=== PATIENT | male | born 1960 | race Caucasian/White ===

== ENCOUNTER → 2018-02-14 | Outpatient (CLI) | payer OTHER ==
--- NOTE | 2018-02-14 09:22 | EKG ---
FACILITY: [facility] PATIENT NAME: ALTA GONZALEZ : [id number] MR: [id number] V: [id number] EXAM DATE: ORDERING PHYSICIAN: GINA OLIVARES TECHNOLOGIST: STARLA Hammond Reason : PREOP-KNEE Blood Pressure : / mmHG Vent. Rate : 060 BPM Atrial Rate : 060 BPM P-R Int : 178 ms QRS Dur : 094 ms QT Int : 444 ms P-R-T Axes : 057 067 064 degrees QTc Int : 444 ms Sinus rhythm with occasional and consecutive premature ventricular complexes Voltage criteria for left ventricular hypertrophy Peaked T waves in ant/lat leads No previous ECGs available Confirmed by OLINDA MAYEN ([id number]) on 02/14/2018 4:11:12 PM Referred By: ELISE Confirmed By:OLINDA MAYEN
[2018-02-14 09:23] LABS: PLATELET COUNT, AUTOMATED 275 K/uL (150-450)
== END ==
LOC: LAB 08:34
PROVIDERS: ATTEND Anesthesiology
DX: Z01.812 Encounter for preprocedural laboratory examination (principal); Z01.810 Encounter for preprocedural cardiovascular examination; M25.561 Pain in right knee
CPT/HCPCS: 36415; 81001; 82040; 82247; 82310; 82374; 82435; 82565; 82947; 84075; 84132; 84155; 84295; 84450; 84460; 84520; 85025; 93005

== ENCOUNTER 2018-03-24 00:54 | Inpatient (IN) | payer OTHER, BC ==
[2018-03-23 14:54] LABS: INR 0.94
[~2018-03-24] VITALS: Ht 170.2 cm; Wt 79.8 kg
[2018-03-24] VITALS (16 sets, daily range): BP systolic 142–195; BP diastolic 84–135
[~2018-03-24 00:54] MED LIST: ATOR20TA22 PO; LISI-374 PO; MELA1LIQ PO; MULT1TAB64 PO
[2018-03-24] MEDS ORDERED: MIDAZOLAM 2 MG/2 ML VIAL IVP PRN (09:10)
[2018-03-24] MEDS ORDERED: LIDOCAINE/SOD BICARB 8.4% SYR ID ONE (09:10)
[2018-03-24] MEDS ORDERED: cloNIDine EPIDUR INJ 100MCG/ML 40 MCG, ROPIVACAINE 0.5% 20 ML VIAL 25 ML, EPINEPHrine H... INJ ONE (09:10)
[2018-03-24] MEDS ORDERED: ACETAMINOPHEN 500 MG TAB PO ONE (09:10)
[2018-03-24] MEDS ORDERED: PREGABALIN 150 MG CAPSULE PO ONE (09:10)
[2018-03-24] MEDS ORDERED: CELECOXIB 200 MG CAP PO ONE (09:10)
[2018-03-24] MEDS ORDERED: NORMOSOL R SOLN(*) 1000 ML BAG 1,000 ML IV PRN (09:10)
[2018-03-24] MEDS ORDERED: FAMOTIDINE 20 MG TAB PO ONE (09:10)
[2018-03-24] MEDS ORDERED: TRANEXAMIC AC 1000 MG/10ML SDV 1,000 MG in DEXTROSE 5% 50 ML BAG 50 ML IV ONE (09:10)
[2018-03-24] MEDS: VANCOMYCIN(*) 1 GM VIAL 1.25 GM in NS(*) 0.9% 250 ML BAG 250 ML IVPB ONE ×2 (11:07→11:46)
[2018-03-24] MEDS ORDERED: fentaNYL CITR 250 MCG/5 ML AMP ONE (12:01)
[2018-03-24] MEDS ORDERED: PROPOFOL EMUL(*) 10MG/ML 20 ML 20 ML ONE (12:02)
[2018-03-24] MEDS ORDERED: LIDOCAINE 2% IV 100 MG/5ML SYR ONE (12:02)
[2018-03-24] MEDS ORDERED: ROPIVACAINE 0.5% 20 ML VIAL ONE (12:05)
[2018-03-24] MEDS ORDERED: ROPIVACAINE 0.2% 20 ML VIAL ONE (12:05)
[2018-03-24] MEDS ORDERED: DEXAMETHASONE SOD PHOS 10MG/ML ONE (12:08)
[2018-03-24] MEDS ORDERED: LIDOCAINE MPF 1% 5 ML VIAL ONE ×2 (12:43→12:44)
[2018-03-24] MEDS ORDERED: DEXAMETHASONE SOD 4 MG/ML VIAL ONE ×2 (13:14→14:31)
[2018-03-24] MEDS ORDERED: ONDANSETRON 4 MG/2 ML VIAL ONE (13:15)
[2018-03-24] MEDS ORDERED: KETAMINE HCL 200 MG/20 ML MDV ONE (13:56)
[2018-03-24] MEDS ORDERED: fentaNYL CITR 100 MCG/2 ML AMP ONE ×3 (14:01→14:47)
[2018-03-24] MEDS ORDERED: hydrALAZINE HCL 20 MG/ML VIAL ONE (14:35)
[2018-03-24] MEDS ORDERED: LABETALOL HCL 100 MG/20ML VIAL ONE ×3 (14:51→17:18)
[2018-03-24] MEDS ORDERED: OXYC5CAP21 PO (15:30)
[2018-03-24] MEDS ORDERED: PROMETHAZINE 25 MG/ML 1 ML AMP ONE (15:37)
--- NOTE | 2018-03-24 15:52 | EKG ---
FACILITY: [facility] PATIENT NAME: ALTA GONZALEZ : [id number] MR: [id number] V: [id number] EXAM DATE: ORDERING PHYSICIAN: LALITHA RAMIREZ TECHNOLOGIST: KIRA Hammond Reason : Blood Pressure : / mmHG Vent. Rate : 107 BPM Atrial Rate : 107 BPM P-R Int : 184 ms QRS Dur : 086 ms QT Int : 372 ms P-R-T Axes : 047 -08 034 degrees QTc Int : 496 ms Sinus tachycardia with frequent premature ventricular complexes in a pattern of bigeminy Left ventricular hypertrophy Nonspecific ST abnormality Abnormal ECG When compared with ECG of 14-FEB-2018 09:11, Vent. rate has increased BY 47 BPM Questionable change in QRS axis ST now depressed in Lateral leads Nonspecific T wave abnormality now evident in Inferior leads Nonspecific T wave abnormality now evident in Lateral leads Confirmed by GINA BENNETT ([id number]) on 03/24/2018 6:03:30 PM Referred By: BROOKS Confirmed By:GINA BENNETT
--- NOTE | 2018-03-24 16:39 | RADIOLOGY IMAGING REPORT ---
FACILITY: [facility] [place] PATIENT NAME: Arturo Griffin : 1960 MR: [id number] V: [id number] EXAM DATE: ORDERING PHYSICIAN: JULIUS GUY TECHNOLOGIST: Location: [facility] [place] Patient: Arturo Griffin : 1960 Visit/Account:[id number] Date of Sevice: 03/24/2018 KNEE LIMITED RIGHT Indication: Postop Comparison: None available Findings: There are postoperative changes from unicompartmental medial arthroplasty. Components are well seated . Alignment is neutral. IMPRESSION: 1. Unremarkable postoperative appearance of medial unicompartmental arthroplasty Report Dictated By: Gerardo Arellano at 03/24/2018 4:35 PM Report E-Signed By: Gerardo Arellano at 03/24/2018 4:36 PM WSN:[id number]
[2018-03-24] MEDS ORDERED: oxyCODONE HCL 5 MG CAP PO PRN (18:05)
--- NOTE | 2018-03-24 18:54 | Hospitalist Consultation ---
History of Present Illness Requesting Physician Dr. Guy Reason for Consult Ventricular bigeminy History of Present Illness This patient was admitted for knee surgery earlier today. He developed tachycardia, fever, and ventricular bigeminy during recovery. He received local nerve blocks with ropivacaine for anesthesia. He doesn't complain of any subjective symptoms. He does report a similar episode after receiving a steroid injection several months ago. At that time he reported cold sweats and feeling lightheaded. History Problems: (1) Essential hypertension Home Meds Reported Medications Oxycodone Hcl (OXYCODONE HCL) 5 Mg Capsule, 5 MG PO Q4H Y for PAIN, #40 CAPSULE 03/24/18 Melatonin (MELATONIN) 1 Mg/1 Ml Liquid, PO DAILY 03/17/18 Multivitamin (MULTI VITAMIN DAILY) 1 Each Tablet, 1 EACH PO DAILY 03/17/18 Atorvastatin Calcium (LIPITOR) 20 Mg Tablet, 1 TAB PO QDAY, TAB 03/17/18 Lisinopril (LISINOPRIL) 40 Mg Tablet, 40 MG PO QDAY, TAB 03/16/18 Allergies: Coded Allergies: No Known Drug Allergies (Unverified , 03/16/18) Hx Smoking: Yes (1/2PPD) Smoking Status: Current: Every Day Smoker Caffeine Intake: Coffee, Soda Caffeine/Cups Per Day: 1-2 a couple times a week, 2 sode a day Hx Alcohol Use: Yes Alcohol Used: Beer Hx Substance Use Disorder: No History of IV Drug Use: No Review of Systems All Systems Reviewed/Normal: Yes Exam Vital Signs Vital Signs Date Time Temp Pulse Resp B/P (MAP) Pulse Ox O2 Delivery O2 Flow Rate FiO2 03/24/18 18:21 90 Nasal Cannula 3.0 03/24/18 18:18 78 03/24/18 17:34 99.3 24 167/87 (113) Neuro: No Gross deficits Eyes: PERRLA Cardiovascular: Regular Rate and Rhythm, No JVD Respiratory: Clear to Auscultation GI: Abd Soft and Non-Tender Extremities: No Edema Integumentary: No Cyanosis Medical Decision Making Data Points Item Value Date Time Troponin I 0.042 ng/ml 03/24/18 1615 Assessment and Plan Problems: (1) Ventricular bigeminy Assessment & Plan: He did develop ventricular bigeminy and a fever post operatively. It is unclear if this could be secondary to medications. However , he did experience some similar symptoms after receiving his cortisone injection a few months ago. We will need to determine if any anesthetic agents were also administered at that time. We have placed him on telemetry and ordered a troponin series. Copies to: JULIUS GUY MD Venous Thromboembolism Antithrombotics Is Pt On Any Antithrombotics?: No GINA BENNETT DO Mar 24, 2018 18:54
[2018-03-24] MEDS: IBUPROFEN 600 MG TAB PO PRN (22:24)
[2018-03-24] MEDS: LISINOPRIL 20 MG TAB PO SCH (22:24)
[2018-03-25] VITALS: BP 181/82
[2018-03-25] MEDS: oxyCODONE HCL 5 MG CAP PO PRN ×2 (00:51→16:16)
[2018-03-25 04:00] VITALS: BP 161/63
[2018-03-25 05:37] LABS: PLATELET COUNT, AUTOMATED 204 K/uL (150-450)
[2018-03-25] MEDS: IBUPROFEN 600 MG TAB PO PRN (08:35)
[2018-03-25] MEDS: ASPIRIN 325 MG ENTERIC COATED PO SCH (08:35)
[2018-03-25] MEDS ORDERED: NICOTINE INH SYSTEM 10 MG/INH INH PRN (10:15)
--- NOTE | 2018-03-25 10:45 | Hospitalist Progress Note ---
Subjective Progress Notes Subjective No cp/sob. Less frequent PVC on telemetry Physical Exam Vital Signs Date Time Temp Pulse Resp B/P (MAP) Pulse Ox O2 Delivery O2 Flow Rate FiO2 03/25/18 07:25 93 Nasal Cannula 1.0 03/25/18 04:00 98.9 57 161/63 (95) 03/24/18 23:00 22 Intake and Output 03/26/18 06:59 Intake Total 236 ml Balance 236 ml Intake Oral 236 ml # Voids 1 General Appearance: Alert, Awake, No Acute Distress Cardiovascular: Regular Rate and Rhythm (2/6 sys ejection murmur across the precordium) Respiratory: Clear to Auscultation Result Diagram: 03/25/18 0520 Assessment and Plan Problems: (1) Elevated troponin Status: Acute Assessment & Plan: The troponin continues to rise. No worrisome symptoms. It is likely related to the strain of surgery and the previous tachycardia. Will continue to follow labs and on telemetry. He is already on ASA/Lipitor. Echo today. His heart rate is too slow for a BB. He does smoke. (2) Ventricular bigeminy Status: Resolved Assessment & Plan: He did develop ventricular bigeminy and a fever post operatively. It is unclear if this could be secondary to medications. However , he did experience some similar symptoms after receiving his cortisone injection a few months ago. This has since resolved, but he does have a troponin elevation. See above. (3) Essential hypertension Status: Chronic Assessment & Plan: Continue chronic lisinopril and amlodipine. Exam Sepsis Risk: No Definite Risk OLINDA MAYEN MD Mar 25, 2018 10:45
[2018-03-25] MEDS: amLODIPine BESYL(*) 5 MG TAB PO SCH (11:10)
--- NOTE | 2018-03-25 11:40 | EKG ---
[facility] PATIENT NAME: ALTA GONZALEZ : [id number] MR: [id number] V: [id number] EXAM DATE: ORDERING PHYSICIAN: OLINDA MAYEN TECHNOLOGIST: KIRA Hammond Reason : Blood Pressure : / mmHG Vent. Rate : 058 BPM Atrial Rate : 058 BPM P-R Int : 170 ms QRS Dur : 088 ms QT Int : 576 ms P-R-T Axes : 009 008 051 degrees QTc Int : 565 ms Sinus bradycardia Left ventricular hypertrophy with repolarization abnormality Prolonged QT Borderline ST depression laterally When compared with ECG of 24-MAR-2018 15:42, premature ventricular complexes are no longer present Vent. rate has decreased BY 49 BPM Nonspecific T wave abnormality no longer evident in Inferior leads Nonspecific T wave abnormality, improved in Lateral leads QT has lengthened Confirmed by OLINDA MAYEN ([id number]) on 03/25/2018 9:01:21 PM Referred By: TIARRA Confirmed By:OLINDA MAYEN
[2018-03-25 12:51] VITALS: BP 138/77
[2018-03-25 13:25] VITALS: Ht 170.2 cm; Wt 79.8 kg
--- NOTE | 2018-03-25 14:42 | OPERATIVE REPORT 1 ---
EVENT DATE: March 24, 2018 SURGEON: Kleber Alfred MD ANESTHESIOLOGIST: Kieran Scott MD ANESTHESIA: General plus iPACK and adductor canal block. SLIP COVER CUTTER: Tremaine Sandhu PA-C PREOPERATIVE DIAGNOSIS Right anteromedial knee arthritis. POSTOPERATIVE DIAGNOSIS Right anteromedial knee arthritis. PROCEDURE PERFORMED Right unicompartmental arthroplasty. ESTIMATED BLOOD LOSS 50 INTRAVENOUS FLUIDS Crystalloid 1400, no colloid. TOURNIQUET TIME 68 SPECIMENS No specimens. COMPLICATIONS No complications. IMPLANTS USED Biomet Hope large femur, size D right tibial component, and 3 mm free bearing. SUMMARY OF PROCEDURE The patient was brought into the operating room and placed on the OR table in the supine position. He had requested a same-day discharge if possible; therefore, we gave him an adductor canal block and an iPACK block. We also used a special cocktail within the joint to additionally numb up the periosteum. In any case, after the blocks were complete, he was given a light general anesthetic, and then his leg was positioned in approximately 35 degrees of abduction and flexion at the hip with a bump under his right hip. He was then prepped and draped in the standard fashion. The limb was exsanguinated, and the tourniquet was inflated to 275 mmHg. We made an anteromedial incision, deepened through skin and subcutaneous tissue. The capsulotomy was then completed in the same plane. We did our typical inspection for the medial compartment arthroplasty to confirm that it was the appropriate choice. The ACL was intact. The lateral compartment was normal. There was some patellofemoral arthritis, but it was minimal. This was an adequate candidate; therefore, we proceeded. The osteophytes were removed from the notch. There were not very many. There were quite a few osteophytes off of the medial compartment as one might expect. Care was taken not to compromise the medial collateral ligament. Having done this, we then sized the femur. It sized best with the 1 mm large. We then set up the 4 mm G clamp with the tibial guide to allow for the slope and then drilled the single hole anteriorly in the tibia. The sagittal cut was made first incomplete, and then we completed the transverse cut. The guide was taken down, and then we completed the sagittal cut and removed the device by first freeing it with an osteotome, and then pulling it out with a retractor. We examined it, and it had the classic anteromedial arthrotic pattern. We also sized it for a good fit on a D. We then proceeded with the intramedullary guidance, placing the oksana, and then used a size 4 G clamp to secure it and drilled our central hole in the middle of the condyle. We did the 4 mm first, and then the 6 mm hole, and then removed this assembly. The posterior cut was made all the while taking care to protect the MCL. We had already removed the medial meniscus, taking care to leave a sleeve of meniscus medially to protect the MCL. We then set the first zero spigot and milled. We checked both in extension and flexion. It was 3 in flexion and 1 in extension, so we selected a 2 spigot to remove an additional millimeter, checked it again, and both were a good 3 at 20 degrees for extension check and about 100 degrees for flexion check. We then did the posterior osteotome, but there was nothing to remove there. Then, we did the anterior impingement mill which definitely did remove additional bone. We irrigated the wound. We injected local anesthetic into the posterior capsule and periosteum as well as the local tissue surrounding it , and then we proceeded with trialing. With the trial tibial component in place , we did a 3, and it fit well. It did not impingement. It was stable in flexion and extension. We then removed that and prepared the keel. The Dolphin blade was used after securing the tibial component, and then we checked the trial. It fit nicely. We drilled our peripheral holes on the tibia and the femur and then proceeded to mix cement. The implants were placed, starting with the tibia. The toffee hammer was used to secure it, starting posterior, moving anterior, and then flat. Excess cement was removed with the [place] cement curettes, and then we proceeded to place the femoral component, after which the additional cement was again removed. We placed the 3 mm feeler gauge and then held it in 45 degrees of flexion with axial compression until full polymerization, at which point the tourniquet was deflated. We checked again for any excess cement. It is certainly possible there was some in the posterior capsule, but we could not extract any at this time, nor could I feel any. We then did one more trial with the 3, and it fit well without impingement , so we moved to the final 3 mm implant, inserted it, irrigated once again, and then closed the capsule, followed by subcutaneous tissue and then skin. He was given the typical Dermabond strip. He was awakened and transferred to the recovery area in stable condition with a dressing in place. EMEKA
[2018-03-25 15:01] VITALS: BP 144/64
[2018-03-25] MEDS: ATORVASTATIN 40 MG TAB PO SCH (21:12)
[2018-03-25] MEDS: LISINOPRIL 20 MG TAB PO SCH (21:12)
[2018-03-25 21:16] VITALS: BP 135/81
[2018-03-25 23:51] VITALS: BP 131/75
[2018-03-26] MEDS: oxyCODONE HCL 5 MG CAP PO PRN ×5 (03:53→21:50)
[2018-03-26 03:56] VITALS: BP 142/68
[2018-03-26 07:41] VITALS: BP 149/78
[2018-03-26] MEDS: ASPIRIN 325 MG ENTERIC COATED PO SCH (08:30)
[2018-03-26] MEDS: amLODIPine BESYL(*) 5 MG TAB PO SCH (08:31)
--- NOTE | 2018-03-26 10:36 | Hospitalist Progress Note ---
Subjective Progress Notes Subjective The patient is having knee pain today. He denies chest pain. Physical Exam Vital Signs Date Time Temp Pulse Resp B/P (MAP) Pulse Ox O2 Delivery O2 Flow Rate FiO2 03/26/18 09:00 93 Room Air 03/26/18 07:41 98.7 57 16 149/78 (101) 03/25/18 20:00 1.0 Intake and Output 03/27/18 06:59 # Voids 1 General Appearance: Alert, Awake, No Acute Distress Neuro: No Gross deficits Eyes: PERRLA Cardiovascular: Regular Rate and Rhythm Respiratory: Clear to Auscultation GI: Soft and Non-Tender Extremities: Warm, Perfused Psych: Appropriate Mood & Affect Result Diagram: 03/25/1851903/26/18 0551 Assessment and Plan Problems: (1) Elevated troponin Status: Acute Assessment & Plan: The troponin peaked at 0.25 and today has decreased to 0.19 No chest pain. It is likely related to the strain of surgery and the previous tachycardia. Will continue to follow labs and on telemetry. He is already on ASA/Lipitor. Echo ordered but unable to do this weekend. His heart rate is too slow for a BB. He does smoke and has been counseled to stop. He sees Dr. Keita at [facility]. The patient did have a stress echo done in April 2017 which was negative for ischemia at that time. Talked with Dr. Leon, director of infection control for Dr. Keita. He recommends a Lexiscan myoview study. lot technician, Lisette Stearns, consulted and she will look at her schedule and call the hospitalist tomorrow to coordinate this. Will continue on telemetry and recheck a troponin in the am. (2) Ventricular bigeminy Status: Resolved Assessment & Plan: He did develop ventricular bigeminy and a fever post operatively. It is unclear if this could be secondary to medications. However , he did experience some similar symptoms after receiving his cortisone injection a few months ago. This has since resolved, but he does have a troponin elevation. See above. (3) Essential hypertension Status: Chronic Assessment & Plan: Continue chronic lisinopril and amlodipine. Time Spent on Plan of Care: < 30 min Exam Sepsis Risk: No Definite Risk SEVERO SORIANO MD Mar 26, 2018 10:35
[2018-03-26] MEDS: IBUPROFEN 600 MG TAB PO PRN (11:43)
[2018-03-26 16:11] VITALS: BP 130/77
[2018-03-26] MEDS: LISINOPRIL 20 MG TAB PO SCH (20:35)
[2018-03-26] MEDS: ATORVASTATIN 40 MG TAB PO SCH (20:35)
[2018-03-26 20:39] VITALS: BP 117/77
[2018-03-26 23:43] VITALS: BP 138/74
[2018-03-27] MEDS: IBUPROFEN 600 MG TAB PO PRN ×2 (01:37→13:26)
[2018-03-27] MEDS: oxyCODONE HCL 5 MG CAP PO PRN ×3 (06:40→18:00)
[2018-03-27] MEDS ORDERED: REGADENOSON 0.4 MG/5 ML SYR ONE (07:33)
[2018-03-27 08:24] VITALS: BP 103/73
[2018-03-27] MEDS: ASPIRIN 325 MG ENTERIC COATED PO SCH (08:24)
[2018-03-27] MEDS: amLODIPine BESYL(*) 5 MG TAB PO SCH (08:24)
--- NOTE | 2018-03-27 08:53 | Hospitalist Progress Note ---
Subjective Progress Notes Subjective He reports doing well. No CP/SOB/Nausea/diaphoresis. Troponin down a little further. Physical Exam Vital Signs Date Time Temp Pulse Resp B/P (MAP) Pulse Ox O2 Delivery O2 Flow Rate FiO2 03/27/18 08:24 50 03/27/18 08:24 98.3 16 103/73 (83) 92 Room Air 03/26/18 20:39 General Appearance: Alert, Awake Cardiovascular: Other (Regular with occasional ectopy/soft systolic murmur) Respiratory: Clear to Auscultation Extremities: Warm, Perfused, Other (right knee dressed) Psych: Alert & Oriented X3 Result Diagram: 03/25/18 0520 03/26/18 0551 Assessment and Plan Problems: (1) Elevated troponin Status: Acute Assessment & Plan: The troponin peaked at 0.25 and yesterday has decreased now to 0.103. He is now asymptomatic - No chest pain/dyspnea/diaphoresis. It is may related to the strain of surgery and tachycardia. He is on ASA/Lipitor. Echocardiogram was ordered but unable to do this past weekend. His heart rate is a little too slow for a BB. He does smoke and has been counseled to stop. He sees Dr. Keita at [facility]. The patient did have a stress echo done in April 2017 which was negative for ischemia at that time. Dr. Chip Soriano talked with Dr. William Leon, environmental services attendant for Dr. Keita. He recommended a Lexiscan Myoview study, which we will get done this AM. Further evaluation/treatment pending results. (2) Ventricular bigeminy Status: Resolved Assessment & Plan: He did develop ventricular bigeminy and a fever post operatively. See above. (3) Essential hypertension Status: Chronic Assessment & Plan: Continue chronic lisinopril and amlodipine. Exam Sepsis Risk: No Definite Risk TWILA SORIANO MD Mar 27, 2018 08:53
--- NOTE | 2018-03-27 10:11 | RT STRESS TEST REPORT ---
FACILITY: [facility] [place] PATIENT NAME: ALTA GONZALEZ : [id number] MR: [id number] V: [id number] EXAM DATE: ORDERING PHYSICIAN: SEEVRO SORIANO TECHNOLOGIST: Isauro Acquisition Time: 2018-03-27 09:21:09 Total Exercise Time: 00:01:00 Test Indications: elevated troponin Medications: atorvasatin lisinopril oxycodone Protocol: LEXISCAN Max HR: 092 BPM 56% of Pred: 162 BPM Max BP: 150/082 mmHG Max Work Load: 1.0 METS Baseline EKG shows sinus rhythm with frequent ventricular ectopy including bigeminy, trigeminy, some couplets, and diffuse ST-T changes. Stress was performed using Lexiscan protocol. He experienced some chest tightness and lightheadedness with the infusion. These symptoms resolved very quickly. Stress EKGs remained relatively unchanged. Recovery was rather uneventful. Await Myoview images. Confirmed by TWILA SORIANO ([id number]) on 03/27/2018 10:10:46 AM Referred By: Overread By: TWILA SORIANO
[2018-03-27 10:55] VITALS: BP 101/77
--- NOTE | 2018-03-27 13:00 | RADIOLOGY IMAGING REPORT ---
FACILITY: [facility] [place] PATIENT NAME: Arturo Griffin : 1960 MR: [id number] V: [id number] EXAM DATE: ORDERING PHYSICIAN: SEVERO SORIANO TECHNOLOGIST: Location: [facility] Patient: Arturo Griffin : 1960 Visit/Account:[id number] Date of Sevice: 03/27/2018 EXAMINATION: Single isotope SPECT imaging with regadenoson infusion and gated SPECT imaging. DATE OF EXAMINATION: March 27, 2018. DATE OF INTERPRETATION: March 27, 2018. REQUESTING PHYSICIAN: SEVERO SORIANO. INDICATION: The patient is a 57-year-old male evaluated for CAD. PROCEDURE: After informed consent the patient received an intravenous injection of 12.1 mCi of Tc-99 m sestamibi followed at an appropriate time interval by rest imaging. The patient then subsequently received an intravenous infusion of 0.4 mg of regadenoson per protocol without complication. Resting heart rate was 68 bpm with a peak heart rate of 92 bpm. Blood pressure at rest was 136 / 62 and fol lowing infusion was 158 / 82. Baseline EKG demonstrates normal sinus rhythm with diffuse T-wave abno rmalities and frequent PVCs. There were no diagnostic EKG changes of ischemia following infusion. S ymptoms were nonspecific. The patient then received an intravenous injection of 30.9 mCi of Tc-99m s estamibi followed by stress imaging. RAW DATA: Examination of the summed raw data revealed a good quality study. MYOCARDIAL PERFUSION: The tomographic images demonstrate fairly normal and uniform perfusion both at rest and at stress. There is no evidence of ischemia or infarction.. GATED IMAGES: The gated images demonstrate in ejection fraction estimated at 65-70% with normal wall motion. IMPRESSION: 1. Baseline abnormal EKG without new changes during stress. There is also frequent PVCs. 2. Normal myocardial perfusion scan. 3. Normal LV systolic function; LVEF 65-70%. 4. Based on the results of this exam, the patient appears to be at low risk for future cardiovascular events. Clinical correlation recommended for abnormal EKG and frequent ectopy. Report Dictated By: Destin Kelly MD at 03/27/2018 12:49 PM Report E-Signed By: Destin Kelly MD at 03/27/2018 12:55 PM WSN:[id number]
[2018-03-27] MEDS ORDERED: ASPI-764 PO (13:25)
[2018-03-27] MEDS ORDERED: AMLO-99 PO (13:29)
--- NOTE | 2018-03-27 13:45 | Hospitalist Depart ---
Discharge Summary Reason for Hosp/Final Diag: (1) Elevated troponin Status: Acute Hospital Course & Plan: The troponin peaked at 0.25 and subsequently decreased to 0.103. He is asymptomatic - No chest pain/dyspnea/diaphoresis. It may related to the strain of surgery and tachycardia. He is on ASA/Lipitor. His heart rate is a little too slow for a beta tong. He does smoke and has been counseled to stop. He sees Dr. Schulz at [facility]. The patient did have a stress echo done in April 2017 which was negative for ischemia at that time. Dr. Chip Rodriguez talked with Dr. William Leon, certified medication technician for Dr. Schulz. He recommended a Lexiscan Myoview study, which was done this AM. It shows normal myocardial perfusion with normal ejection fraction. 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 (2) Ventricular bigeminy Status: Resolved Hospital Course & Plan: He did develop ventricular bigeminy post-operatively. He will follow up with cardiology and his primary care provider. See above. (3) Essential hypertension Status: Chronic Hospital Course & Plan: Continue chronic lisinopril and amlodipine. Departure Weight (Pounds): 176 Result Diagram: 03/25/18 0520 03/26/18 0551 Item Value Date Time Troponin I 0.103 ng/ml 03/27/18 0532 Troponin I 0.199 ng/ml *H 03/26/18 0551 Troponin I 0.252 ng/ml *H 03/25/18 1606 Troponin I 0.215 ng/ml *H 03/25/18 0906 Troponin I 0.164 ng/ml *H 03/25/18 0520 Total Creatine Kinase 123 U/L 03/25/18 1606 Troponin I 0.065 ng/ml 03/24/18 2035 Troponin I 0.042 ng/ml 03/24/18 1615 Imaging PATIENT NAME: Alta Griffin : 1960 MR: [id number] V: [id number] EXAM DATE: [id number] ORDERING PHYSICIAN: SEVERO RODRIGUEZ TECHNOLOGIST: Location: [facility] Patient: Alta Griffin : 1960 Visit/Account:[id number] Date of Sevice: 03/27/2018 EXAMINATION: Single isotope SPECT imaging with regadenoson infusion and gated SPECT imaging. DATE OF EXAMINATION: March 27, 2018. DATE OF INTERPRETATION: March 27, 2018. REQUESTING PHYSICIAN: SEVERO RODRIGUEZ. INDICATION: The patient is a 57-year-old male evaluated for CAD. PROCEDURE: After informed consent the patient received an intravenous injection of 12.1 mCi of Tc-99m sestamibi followed at an appropriate time interval by rest imaging. The patient then subsequently received an intravenous infusion of 0.4 mg of regadenoson per protocol without complication. Resting heart rate was 68 bpm with a peak heart rate of 92 bpm. Blood pressure at rest was 136 / 62 and following infusion was 158 / 82. Baseline EKG demonstrates normal sinus rhythm with diffuse T-wave abnormalities and frequent PVCs. There were no diagnostic EKG changes of ischemia following infusion. Symptoms were nonspecific. The patient then received an intravenous injection of 30.9 mCi of Tc-99m sestamibi followed by stress imaging. RAW DATA: Examination of the summed raw data revealed a good quality study. MYOCARDIAL PERFUSION: The tomographic images demonstrate fairly normal and uniform perfusion both at rest and at stress. There is no evidence of ischemia or infarction.. GATED IMAGES: The gated images demonstrate in ejection fraction estimated at 65 -70% with normal wall motion. IMPRESSION: 1. Baseline abnormal EKG without new changes during stress. There is also frequent PVCs. 2. Normal myocardial perfusion scan. 3. Normal LV systolic function; LVEF 65-70%. 4. Based on the results of this exam, the patient appears to be at low risk for future cardiovascular events. Clinical correlation recommended for abnormal EKG and frequent ectopy. Report Dictated By: Destin Kelly MD at 03/27/2018 12:49 PM Report E-Signed By: Destin Kelly MD at 03/27/2018 12:55 PM WSN:[id number] EKG PATIENT NAME: ALTA GRIFFIN : [id number] MR: [id number] V: [id number] EXAM DATE: ORDERING PHYSICIAN: OLINDA MAYEN TECHNOLOGIST: KIRA Hammond Reason : Blood Pressure : / mmHG Vent. Rate : 058 BPM Atrial Rate : 058 BPM P-R Int : 170 ms QRS Dur : 088 ms QT Int : 576 ms P-R-T Axes : 009 008 051 degrees QTc Int : 565 ms Sinus bradycardia Left ventricular hypertrophy with repolarization abnormality Prolonged QT Borderline ST depression laterally When compared with ECG of 24-MAR-2018 15:42, premature ventricular complexes are no longer present Vent. rate has decreased BY 49 BPM Nonspecific T wave abnormality no longer evident in Inferior leads Nonspecific T wave abnormality, improved in Lateral leads QT has lengthened Confirmed by OLINDA MAYEN ([id number]) on 03/25/2018 9:01:21 PM Referred By: TIARRA Confirmed By:OLINDA MAYEN [id number] T: Condition: Improved Discharge: Home PT/OT Follow Up For: PT For Surgical Rehab Time Spent: > 30 min Discharge Instructions Home Meds Active Scripts Amlodipine Besylate (AMLODIPINE BESYLATE) 10 Mg Tablet, 1 TAB PO QDAY for 30 Days, TAB 0 Refills Prov:TWILA RODRIGUEZ MD 03/27/18 Aspirin (ASPIRIN EC) 325 Mg Tablet., 325 MG PO QDAY, #30 TAB 1 Refill Prov:TWILA RODRIGUEZ MD 03/27/18 Reported Medications Oxycodone Hcl (OXYCODONE HCL) 5 Mg Capsule, 5 MG PO Q4H Y for PAIN, #40 CAPSULE 03/24/18 Melatonin (MELATONIN) 1 Mg/1 Ml Liquid, PO DAILY 03/17/18 Multivitamin (MULTI VITAMIN DAILY) 1 Each Tablet, 1 EACH PO DAILY 03/17/18 Atorvastatin Calcium (LIPITOR) 20 Mg Tablet, 1 TAB PO QDAY, TAB 03/17/18 Lisinopril (LISINOPRIL) 40 Mg Tablet, 40 MG PO QDAY, TAB 03/16/18 Diet: Regular Activity: As Tolerated (as outlined by PT/Dr. Guy), With Walker Special Instructions: Follow up with Dr. Guy on April 03 at 3:30 in [place]. Follow up with cardiology (Dr. Schulz) in next 1-2 weeks or sooner if any problems. Return to ER if any difficulties. Copies to: JORDAN SCHULZ MD; JULIUS GUY MD Venous Thromboembolism Antithrombotics Is Pt On Any Antithrombotics?: Yes TWILA RODRIGUEZ MD Mar 27, 2018 13:45
== END 2018-03-27 18:05 | disposition home or self-care (01) | DRG 470 ==
LOC: OR 00:54 → MED 17:51
PROVIDERS: ADMIT Orthopaedic Surgery Hand Surgery; ATTEND Orthopaedic Surgery Hand Surgery
PROC: 0SRC0L9 Replacement of Right Knee Joint with Medial Unicondylar Synthetic Substitute, Cemented, Open Approach (ICD-10-PCS; principal; 2018-03-24 12:56)
PROC: 3E0T3BZ Introduction of Anesthetic Agent into Peripheral Nerves and Plexi, Percutaneous Approach (ICD-10-PCS; 2018-03-24 12:56)
DX: M17.11 Unilateral primary osteoarthritis, right knee (principal); I97.89 Other postprocedural complications and disorders of the circulatory system, not elsewhere classified; I10 Essential (primary) hypertension; E78.5 Hyperlipidemia, unspecified; I34.0 Nonrheumatic mitral (valve) insufficiency; F17.210 Nicotine dependence, cigarettes, uncomplicated; R00.0 Tachycardia, unspecified; R00.8 Other abnormalities of heart beat; R50.82 Postprocedural fever; Y83.8 Other surgical procedures as the cause of abnormal reaction of the patient, or of later complication, without mention of misadventure at the time of the procedure; Y79.3 Surgical instruments, materials and orthopedic devices (including sutures) associated with adverse incidents
CPT/HCPCS: 36415; 76942; 78452; 82310; 82374; 82435; 82550; 82565; 82947; 84132; 84295; 84484; 84520; 85014; 85018; 85025; 85610; 86850; 86900; 86901; 93005; 93017; A9500; C1713; C1776; J0171; J0360; J0735; J1100; J1885; J2001; J2250; J2405; J2550; J2704; J2785; J2795; J3010; J3370; J3490; J7050; J7060